=== PATIENT | female | born 1990 ===

== ENCOUNTER 2016-12-16 18:10 | Emergency (ER) | payer SELFPAY ==
[2016-12-16 18:32] VITALS: TEMP 99.2
[2016-12-16 18:34] VITALS: BMI 25.9
[2016-12-16] MEDS ORDERED: Sodium Chloride 0.9% 1,000 ML IV STA (19:03)
--- NOTE | 2016-12-16 19:17 | ED PDOC ---
Arrival/HPI - General Chief Complaint: Headache Time Seen by Provider: 12/16/16 18:45 Historian: Patient - History of Present Illness Narrative History of Present Illness (Text): 12/16/16 18:57 26 year old female, whose past medical history includes migraines, presents to the emergency department complaining of constant headache for 4 days. Patient reports headache came unexpectedly. Patient notes also experiencing nausea, eyes sensitive to light, weakness (worse with headache; weakness spreads throughout body), tremors, but denies of any fever or any other complaints. She says the headache similar to previous headaches but more intense. No PMD Past Medical History - Provider Review Nursing Documentation Reviewed: Yes - Neurological Hx Migraine: Yes - Psychiatric Hx Substance Use: No - Surgical History Hx Section: Yes - Anesthesia Hx Anesthesia: No Hx Anesthesia Reactions: No Hx Malignant Hyperthermia: No Family/Social History - Physician Review Nursing Documentation Reviewed: Yes Family/Social History: No Known Family HX Smoking Status: Never Smoked Hx Alcohol Use: No Hx Substance Use: No Allergies/Home Meds Allergies/Adverse Reactions: Allergies No Known Allergies Allergy (Verified 12/16/16 18:34) Review of Systems - Physician Review All systems were reviewed & negative as marked: Yes - Review of Systems Constitutional: absent: Fevers Eyes: Other (eyes sensitive to light) Gastrointestinal: Nausea Neurological: Headache, Focal Weakness, Other (tremors) Physical Exam Vital Signs Reviewed: Yes Vital Signs Temp Pulse Resp BP Pulse Ox 12/16/16 19:55 69 18 121/71 98 12/16/16 18:25 99.2 F 74 16 119/76 98 Temperature: Afebrile Blood Pressure: Normal Pulse: Regular Respiratory Rate: Normal Appearance: Positive for: Well-Appearing, Non-Toxic, Comfortable Pain Distress: None Mental Status: Positive for: Alert and Oriented X 3 - Systems Exam Head: Present: Atraumatic, Normocephalic Pupils: Present: PERRL Extroacular Muscles: Present: EOMI Conjunctiva: Present: Normal Mouth: Present: Moist Mucous Membranes Neck: Present: Normal Range of Motion Respiratory/Chest: Present: Clear to Auscultation, Good Air Exchange. No: Respiratory Distress, Accessory Muscle Use Cardiovascular: Present: Regular Rate and Rhythm, Normal S1, S2. No: Murmurs Abdomen: Present: Normal Bowel Sounds. No: Tenderness, Distention, Peritoneal Signs Back: Present: Normal Inspection Upper Extremity: Present: Normal Inspection. No: Cyanosis, Edema Lower Extremity: Present: Normal Inspection. No: Edema Neurological: Present: GCS=15, CN II-XII Intact, Speech Normal, Motor Func Grossly Intact, Gait Normal Skin: Present: Warm, Dry, Normal Color. No: Rashes Psychiatric: Present: Alert, Oriented x 3, Normal Insight, Normal Concentration Medical Decision Making ED Course and Treatment: 12/16/16 19:02 Impression: 26 year old female with headache. Normal physical exam. Plan: -- Head CT -- Toradol -- Reglan -- IV Fluids -- Reassess and disposition Progress Notes: 12/16/16 22:57 CT Brain: FINDINGS: Brain: No intracranial hemorrhage. No mass. No definite edema. Ventricles: No hydrocephalus. Bones/joints: No acute fracture. Soft tissues: Unremarkable. Sinuses: No acute sinusitis. Mastoid air cells: No mastoid effusion. Orbits: Unremarkable as visualized. IMPRESSION: 1. No acute intracranial abnormality. Patient with noted history; brain CT is negative. Normal neuro exam. Feels much better after meds. Consistent with migraines - will d/c on fioricet. - RAD Interpretation Radiology Orders: 12/16/16 19:02 Brain [HEAD W/O CONTRAST] [CT] Stat - Medication Orders Current Medication Orders: Discontinued Medications Sodium Chloride (Sodium Chloride 0.9%) 1,000 mls @ 999 mls/hr IV .Q1H1M STA Stop: 12/16/16 20:03 Last Admin: 12/16/16 19:24 Dose: 999 mls/hr Ketorolac Tromethamine (Toradol) 30 mg IVP STAT STA Stop: 12/16/16 19:04 Last Admin: 12/16/16 19:25 Dose: 30 mg Metoclopramide HCl (Reglan) 10 mg IVP STAT STA Stop: 12/16/16 19:03 Last Admin: 12/16/16 19:24 Dose: 10 mg - Scribe Statement The provider has reviewed the documentation as recorded by the Anam Perez Provider Scribe Attestation: All medical record entries made by the Miteshibhawa were at my direction and personally dictated by me. I have reviewed the chart and agree that the record accurately reflects my personal performance of the history, physical exam, medical decision making, and the department course for this patient. I have also personally directed, reviewed, and agree with the discharge instructions and disposition. Disposition/Present on Arrival - Present on Arrival Any Indicators Present on Arrival: No History of DVT/PE: No History of Uncontrolled Diabetes: No Urinary Catheter: No History of Decub. Ulcer: No History Surgical Site Infection Following: None - Disposition Have Diagnosis and Disposition been Completed?: Yes Diagnosis: Migraine headache Disposition: HOME/ ROUTINE Disposition Time: 22:50 Patient Plan: Discharge Patient Problems: Current Active Problems Problem Status Onset Migraine headache Acute Condition: GOOD Discharge Instructions (ExitCare): Migraine Headache (ED) Print Language: NIGERIEN Additional Instructions: Take the medications as prescribed as needed. Avoid substances and foods that may stimulate your migraine headaches. Return to the emergency department if any new concerning symptoms. Prescriptions: Acetaminophen/Butalbital/Caf [Fioricet] 1 - 2 tab PO Q6H PRN #15 tab PRN Reason: Headache Referrals: [facility] [place] [Outside] - Follow up with primary Forms: [employer] (American)
--- NOTE | 2016-12-16 22:51 | CT ---
EXAM: CT Head Without Intravenous Contrast CLINICAL HISTORY: 26 years old, female; Pain; Headache TECHNIQUE: Axial computed tomography images of the head/brain without intravenous contrast. All CT scans at this facility use one or more dose reduction techniques, viz.: automated exposure control; ma/kV adjustment per patient size (including targeted exams where dose is matched to indication; i.e. head); or iterative reconstruction technique. COMPARISON: No relevant prior studies available. FINDINGS: Brain: No intracranial hemorrhage. No mass. No definite edema. Ventricles: No hydrocephalus. Bones/joints: No acute fracture. Soft tissues: Unremarkable. Sinuses: No acute sinusitis. Mastoid air cells: No mastoid effusion. Orbits: Unremarkable as visualized. IMPRESSION: 1. No acute intracranial abnormality.
[2016-12-16 23:06] VITALS: BP 118/76; PULSE 72; RESP 16; O2SAT 100
== END 2016-12-16 23:06 | disposition home or self-care (01) ==
LOC: ED 18:10
DX: G43.909 Migraine, unspecified, not intractable, without status migrainosus (principal)
CPT/HCPCS: 70450; 96361; 96374; 96375; 99285; J1885; J2765; J7040